=== PATIENT | female | born 1995 | race Caucasian/White ===

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

== ENCOUNTER 2017-01-02 18:18 | Emergency (ER) | payer MEDICAID ==
[~2017-01-02] VITALS: Ht 165.1 cm; Wt 59.0 kg
[~2017-01-02 18:18] MED LIST changes: -AUGM875T PO; -LACT PO; -MUPI2%T TOP
[2017-01-02 18:20] VITALS: BP 131/83; PULSE 87; RESP 16; TEMP 98.3; O2SAT 98
--- NOTE | 2017-01-02 18:41 | PD ---
HPI Chief Complaint: Head Injury Time Seen by Provider: 18:40 Travel History International Travel<30 days: No Contact w/Intl Traveler<30days: No Traveled to known affect area: No History of Present Illness HPI 21 yo female complains of head trauma vomiting epistaxis and visual change in the left eye. She was climbing through a window into a house. Evidently the window was somehow propped up and fell about 2 feet downwards striking her right parietal occipital scalp. She had no loss of consciousness. It was quite painful initially. As noted vomiting epistaxis followed. She also had a triangular shape of blackness in her field of vision in the left eye. No double vision. No extremity weakness. PFSH Past Medical History Developmental Delay: No Diabetes: No Diminished Hearing: No Neurologic: Yes (concussion) Reproductive: Yes (percosious puberty) Immunizations Current: Yes ?: Not LMP: 01/01/17 : 1 Para: 1 Ovarian Cysts: Yes (CYSTS 2010, 2011) Past Surgical History Abdominal Surgery: Yes (LAP, R/T OVARIAN CYST RUPTURED, FB REMOVAL -BRACES Apr) Social History Alcohol Use: No Tobacco Use: No Substance Use: No Allergies-Medications (Allergen,Severity, Reaction): Coded Allergies: Ativan (Verified Allergy, Severe, Itching, 01/02/17) Reported Meds & Prescriptions Reported Meds & Active Scripts Active Bactrim DS (Sulfamethoxazole-Trimethoprim) 800-160 Mg Tab 1 Tab PO BID Motrin Ib (Ibuprofen) 200 Mg Tab 600 Mg PO Q6H PRN Zofran Odt (Ondansetron Odt) 4 Mg Tab 4 Mg SL Q6HR PRN Review of Systems Except as stated in HPI: all other systems reviewed are Neg General / Constitutional: No: Fever Eyes: Positive: Visual changes Physical Exam Narrative GENERAL: 21 yo F, WNWD, NAD, pleasant SKIN: Warm and dry. HEAD: Atraumatic. Normocephalic. No evidence trauma R parieto-occipital trauma. EYES: No scleral icterus. No injection or drainage. Pupils equal round and reactive to light. ENT: No nasal bleeding or discharge. Mucous membranes pink and moist. NECK: Trachea midline. No JVD. CARDIOVASCULAR: Regular rate and rhythm. RESPIRATORY: No accessory muscle use. Clear to auscultation. Breath sounds equal bilaterally. GASTROINTESTINAL: Abdomen soft, non-tender, nondistended. Hepatic and splenic margins not palpable. MUSCULOSKELETAL: Extremities without clubbing, cyanosis, or edema. No obvious deformities. NEUROLOGICAL: Awake and alert. No obvious cranial nerve deficits. Motor grossly within normal limits. Five out of 5 muscle strength in the arms and legs. Normal speech. PSYCHIATRIC: Appropriate mood and affect; insight and judgment normal. Data Data Last Documented VS Vital Signs Date Time Temp Pulse Resp B/P Pulse Ox O2 Delivery O2 Flow Rate FiO2 01/02/17 18:20 98.3 87 16 131/[address] Brain W/O Iv Contrast(Rout) (01/02/17 18:40) MDM Medical Decision Making Medical Screen Exam Complete: Yes Emergency Medical Condition: Yes Medical Record Reviewed: Yes Differential Diagnosis retinal injury, ICH, CHI, globe injury Narrative Course CT head pending at time of dictation. d/w Dr Carbajal at 700pm. Francisco Yan MD January 02, 2017 18:41
--- NOTE | 2017-01-02 19:19 | PD ---
Physical Exam Narrative General: The patient is a well-developed well-nourished female in no acute distress Head and Neck exam: Head is normocephalic atraumatic. Eyes: EOMI, pupils are equal round and reactive to light. Nose: Midline septum with pink mucous membranes Mouth: Dentition unremarkable. Moist mucus membranes. Posterior oropharynx is not erythematous. No tonsillar hypertrophy. Uvula midline. Airway patent. Neck: No palpable lymphadenopathy. No nuchal rigidity. No thyromegaly. No spinous process tenderness to palpation, no step-off or crepitus, no erythema or ecchymosis. Patient has full active range of motion without pain in her neck. Cardiovascular: Regular rate and rhythm without murmurs, gallops, or rubs. Lungs: Clear to auscultation bilaterally. No wheezes, rhonchi, or rales. Abdomen: Soft, without tenderness to palpation in all 4 quadrants of the abdomen. No guarding, rebound, or rigidity. Normal bowel sounds are audible. No tenderness on palpation of McBurney's point. Extremities: No clubbing, cyanosis, or edema. 2+ pulses in all 4 extremities. No calf tenderness on palpation. Back: No spinous process tenderness to palpation. No costovertebral angle tenderness to palpation. Neurologic Exam: Cranial nerves 2-12 were intact on exam. Strength is 5/5 in all 4 extremities. No sensory deficits noted. No dysdiadochokinesis. Good finger to nose and Heel to thorpe bilaterally. Skin Exam: No rash noted. Intact skin that is warm and dry. Data Data Last Documented VS Vital Signs Date Time Temp Pulse Resp B/P Pulse Ox O2 Delivery O2 Flow Rate FiO2 01/02/17 18:20 98.3 87 16 131/[address] Brain W/O Iv Contrast(Rout) (01/02/17 18:40) Mri Brain W&W/O Contrast (01/02/17 20:05) Complete Blood Count With Diff (01/02/17 20:05) Basic Metabolic Panel (Bmp) (01/02/17 20:05) Westergren Sedimentation Rate (01/02/17 20:05) Sodium Chlor 0.9% 1000 Ml Inj (Ns 1000 M (01/02/17 20:30) Ondansetron Inj (Zofran Inj) (01/02/17 20:30) Acetamin-Hydrocod 325-5 Mg (Left Hand 5-325 (01/02/17 20:30) Labs Laboratory Tests Test 01/02/17 20:21 White Blood Count 10.3 TH/MM3 Red Blood Count 4.63 MIL/MM3 Hemoglobin 13.5 GM/DL Hematocrit 39.2 % Mean Corpuscular Volume 84.8 FL Mean Corpuscular Hemoglobin 29.1 PG Mean Corpuscular Hemoglobin 34.3 % Concent Red Cell Distribution Width 14.3 % Platelet Count 249 TH/MM3 Mean Platelet Volume 9.3 FL Neutrophils (%) (Auto) 64.9 % Lymphocytes (%) (Auto) 27.1 % Monocytes (%) (Auto) 6.2 % Eosinophils (%) (Auto) 1.5 % Basophils (%) (Auto) 0.3 % Neutrophils # (Auto) 6.7 TH/MM3 Lymphocytes # (Auto) 2.8 TH/MM3 Monocytes # (Auto) 0.6 TH/MM3 Eosinophils # (Auto) 0.2 TH/MM3 Basophils # (Auto) 0.0 TH/MM3 CBC Comment DIFF FINAL Differential Comment Erythrocyte Sedimentation Rate 11 mm/hr Sodium Level 138 MEQ/L Potassium Level 4.1 MEQ/L Chloride Level 105 MEQ/L Carbon Dioxide Level 25.6 MEQ/L Anion Gap 7 MEQ/L Blood Urea Nitrogen 9 MG/DL Creatinine 0.78 MG/DL Estimat Glomerular Filtration 95 ML/MIN Rate Random Glucose 80 MG/DL Calcium Level 8.8 MG/DL [facility] Medical Record Reviewed: Yes Supervised Visit with ELIZABETH: No Interpretation(s) Last Impressions Head CT 01/02/17 1840 Signed Impressions: Service Date/Time: Monday, January 02, 2017 19:47 - CONCLUSION: Normal examination. Godwin Odonnell MD Differential Diagnosis Retinal detachment, versus retinal tear, versus occipital lobe trauma, versus intra-cranial hemorrhage, versus MS. Narrative Course During the course of the patients emergency department visit, the patients history, examination, and differential diagnosis were reviewed with the patient. The patient was placed on a drywall hanger helper with oximetry and blood pressure monitoring. The patient's case was checked out to me by Dr. Yan who requested that I review the patient's CT scan findings. The patient is a 21 -year-old female who presents to [facility] emergency department with a reported history of at 11 AM this morning attempting to climb through her window as she did not have a bernal. She reports that the window fell down on the occipital aspect of her head. She reports that apparently 5 minutes later she had 2 episodes of vomiting. She reports that intermittently since then she' s had nosebleeds of a minor amount of bleeding 5 times. She reports that the bleeding stops on its own. She denies hitting her head or face. She reports that about an hour ago she began to have a headache over her forehead that she describes as a pressure sensation that comes and goes. She also reports that since hitting her head she has a triangular aspect loss of visual medrano along the nasal aspect of her upper vision. On exam, the patient has no retinal abnormality identified. Pupils are equal bilaterally. Visual acuity is 20 over 20 bilaterally. A call was placed out to the outside residential sales professional on-call for further guidance and consideration of follow-up tomorrow for dilated eye exam. The patient reports that the last time she had an eye exam was [address] scan of the brain has been ordered. Laboratory studies were done and a CBC was within normal limits, sedimentation rate is 11 decreased the likelihood of a vasculitis, BMP is unremarkable Radiology studies were reviewed and remarkable for a CT scan of the brain that shows no acute abnormality. MRI with and without contrast of the brain shows no acute abnormality. The patient will be discharged home to follow-up with Dr. Jacobsen, the outside residential sales professional financial services education consultant. I did speak to him by phone and he recommended that the patient follow-up in his office tomorrow for a dilated eye exam. The patient is resting comfortably and feels better, is alert and in no distress. The patients results and examination findings were discussed with the patient. The repeat examination is unremarkable and benign. The history, exam, diagnostic testing, and current condition do not suggest any significant pathology to warrant further testing, continued ED treatment, admission, or surgical evaluation at this point. The vital signs have been stable. The patient does not have uncontrollable pain, intractable vomiting, or other significant symptoms. The patient's condition is stable and appropriate for discharge. The patient will pursue further outpatient evaluation with a primary care physician or other designated or consulting physician as indicated in the discharge instructions. The patient expressed understanding and was agreeable with this plan. Physician Communication Physician Communication The patient's case was discussed with Dr. Jacobsen at 8:03 PM. He reported that he will see the patient in his office tomorrow for a dilated eye exam. Diagnosis Primary Impression: Visual field defect Additional Impression: Head injury Qualified Code: S09.90XA - Head injury, initial encounter Referrals: Puma Santiago MD 1 day Call in the morning for an appointment and a dilated eye exam Patient Instructions: Acute Headache (ED), General Instructions, Head Injury ( ED) Med/Other Pt SpecificInfo: Prescription(s) given Scripts Ondansetron Odt (Zofran Odt)4 Mg Tab4 Mg SL Q6HR PRN (Nausea/Vomiting) #7 TAB Ref 0 Prov:Abigail Carbajal MD 01/02/17 Disposition: 01 DISCHARGE HOME Condition: Stable Abigail Carbajal MD January 02, 2017 19:19
--- NOTE | 2017-01-02 20:00 | RADRPT ---
EXAM DATE/TIME: 01/02/2017 19:47 [facility] COMPARISON: CT BRAIN W/O CONTRAST, April 21, 2010, 12:04. INDICATIONS : Window fell on head, now vomiting. RADIATION DOSE: 44.71 CTDIvol (mGy) MEDICAL HISTORY : percosions puberty SURGICAL HISTORY : None. ENCOUNTER: Initial ACUITY: 1 day PAIN SCALE: 5/10 LOCATION: cranial TECHNIQUE: Multiple contiguous axial images were obtained of the head. Using automated exposure control and adj ustment of the mA and/or kV according to patient size, radiation dose was kept as low as reasonably a chievable to obtain optimal diagnostic quality images. FINDINGS: CEREBRUM: The ventricles are normal for age. No evidence of midline shift, mass lesion, hemorrhage or acute in farction. No extra-axial fluid collections are seen. POSTERIOR FOSSA: The cerebellum and brainstem are intact. The 4th ventricle is midline. The cerebellopontine angle i s unremarkable. EXTRACRANIAL: The visualized portion of the orbits is intact. SKULL: The calvaria is intact. No evidence of skull fracture. CONCLUSION: Normal examination. Godwin Odonnell MD on January 02, 2017 at 19:57 Board Certified Radiologist. This report was verified electronically.
[2017-01-02] MEDS ORDERED: ONDANSETRON HCL 4 MG/2 ML VIAL IV ONE (20:30)
[2017-01-02] MEDS ORDERED: SODIUM CHLOR 0.9% 1000 ML INJ 1,000 ML IV ONE (20:30)
[2017-01-02] MEDS ORDERED: ACETAMINOPHEN/HYDROcodone 325 MG/5 MG TAB PO ONE (20:30)
[2017-01-02 20:56] LABS: AUTOMATED NEUTROPHIL # 6.7 TH/MM3 (1.8-7.7); BASOPHIL % 0.3 % (0.0-2.0); EOSINOPHIL # 0.2 TH/MM3 (0-0.4); EOSINOPHIL % 1.5 % (0.0-4.0); HEMATOCRIT 39.2 % (35.0-46.0); HEMO FLAGS DIFF FINAL; LYMPH % 27.1 % (9.0-44.0); LYMPHOCYTE # 2.8 TH/MM3 (1.0-4.8); MEAN CELL VOLUME 84.8 FL (80.0-100.0); MEAN CORPUSCULAR HEMOGLOBIN 29.1 PG (27.0-34.0); MEAN CORPUSCULAR HGB CONC 34.3 % (32.0-36.0); MONO % 6.2 % (0.0-8.0); NEUT % 64.9 % (16.0-70.0); PLATELET COUNT 249 TH/MM3 (150-450); RED BLOOD COUNT 4.63 MIL/MM3 (4.00-5.30); RED CELL DISTRIBUTION WIDTH 14.3 % (11.6-17.2); WHITE BLOOD COUNT 10.3 TH/MM3 (4.0-11.0)
[2017-01-02 21:29] LABS: BICARBONATE 25.6 MEQ/L (21.0-32.0)
[2017-01-02 21:43] LABS: POTASSIUM 4.1 MEQ/L (3.5-5.1)
--- NOTE | 2017-01-02 22:24 | RADRPT ---
EXAM DATE/TIME: 01/02/2017 21:34 [facility] COMPARISON: No previous studies available for comparison. INDICATIONS : Trauma. Visual field deficit after head injury. CONTRAST: 12 cc Omniscan (gadodiamide) IV MEDICAL HISTORY : None. SURGICAL HISTORY : Post ovarian cyst rupture. ENCOUNTER: Subsequent ACUITY: 1 day PAIN SCORE: 0/10 LOCATION: cranial TECHNIQUE: Multiplanar, multisequence MRI of the brain was performed both prior to and following the administrat ion of paramagnetic contrast. FINDINGS: CEREBRUM: The ventricles are normal for age. No evidence of midline shift, mass lesion, hemorrhage or acute in farction. No extraaxial fluid collections are seen. The pituitary gland and suprasellar cistern are normal in configuration. WHITE MATTER: No significant signal abnormalities are seen in the white matter. POSTERIOR FOSSA: The cerebellum and brainstem are intact. The 4th ventricle is midline. The cerebellopontine angle is unremarkable. The cerebellar tonsils are normal in position. DIFFUSION IMAGING: No focal areas of restricted diffusion are seen. No evidence of acute infarction. EXTRACRANIAL: The visualized portions of the orbits and paranasal sinuses are unremarkable. POST-CONTRAST: No abnormal areas of parenchymal or dural enhancement. No evidence of blood-brain barrier breakdown. CONCLUSION: Normal examination. Godwin Odonnell MD on January 02, 2017 at 22:21 Board Certified Radiologist. This report was verified electronically.
[2017-01-02] MEDS ORDERED: ZOFR4TAB3 SL (22:32)
[2017-01-02] MEDS ORDERED: GADODIAMIDE PF 287 MG/ML 5 ML VIAL (for RAD MRI) IV ONE (22:55)
== END 2017-01-02 23:04 | disposition home or self-care (01) ==
LOC: NEPE 18:18
DX: H53.40 Unspecified visual field defects (principal); S09.90XA Unspecified injury of head, initial encounter; R11.10 Vomiting, unspecified; R04.0 Epistaxis; W20.8XXA Other cause of strike by thrown, projected or falling object, initial encounter; Y92.009 Unspecified place in unspecified non-institutional (private) residence as the place of occurrence of the external cause
CPT/HCPCS: 70450; 70553; 80048; 85025; 85652; 99284; A9579; J7030

== ENCOUNTER 2017-04-20 10:28 | Emergency (ER) | payer MEDICAID ==
[~2017-04-20 10:28] MED LIST changes: -BACT800T5 PO; +METR500T10 PO; -MOTR200T4 PO; -ZOFR4TAB3 SL; +[UNRECOGNIZED DRUG - CODE] PO
[2017-04-20] MEDS ORDERED: IOHEXOL 350 MG/ML 10 ML VIAL (for RAD DIAG) IVCONTRAST ONE (10:29)
[2017-04-20 10:30] VITALS: BP 144/91; PULSE 107; RESP 15; TEMP 97.9; O2SAT 99
--- NOTE | 2017-04-20 11:54 | PD ---
HPI Chief Complaint: Chest Pain Time Seen by Provider: 11:09 Travel History International Travel<30 days: No Contact w/Intl Traveler<30days: No Traveled to known affect area: No History of Present Illness HPI 21-year-old female that presents to the ED for evaluation of chest pain on and off for 2 months. Per patient the chest pain got worse the past couple days. Per patient came more severe. Nothing really seems to bring about. She is concerned because she does have a family history and her mom who had a heart attack in her 20s. She has no cardiac history herself. She does do some heavy lifting as she does have a toddler at home but other than that she does not have any history of injuries. She denies any actual injury. No cough or runny nose. Per patient he feels like a pulling sensation and he can be sharp 7 out of 10 but she has no pain at this time. She did have pain before being brought to the room. Patient does not radiate. She denies any shortness of breath and recent travel. No fevers chills or sweats. PFSH Past Medical History Developmental Delay: No Diabetes: No Diminished Hearing: No Neurologic: Yes (concussion) Reproductive: Yes (percosious puberty) Immunizations Current: Yes ?: Not : 1 Para: 1 Ovarian Cysts: Yes (CYSTS 2010, 2011) Past Surgical History Abdominal Surgery: Yes (LAP, R/T OVARIAN CYST RUPTURED, FB REMOVAL -BRACES Apr) Social History Alcohol Use: No Tobacco Use: No Substance Use: No Allergies-Medications (Allergen,Severity, Reaction): Coded Allergies: lorazepam (Unverified Allergy, Severe, Itching, 04/10/17) Reported Meds & Prescriptions Reported Meds & Active Scripts Active Amethia Lo (Levonorgestrel-Ethinyl Estradiol) 0.1-0.02-0.01 Mg Tab 1 Tab PO DAILY Review of Systems Except as stated in HPI: all other systems reviewed are Neg Physical Exam Narrative GENERAL: SKIN: Warm and dry. HEAD: Atraumatic. Normocephalic. EYES: Pupils equal and round. No scleral icterus. No injection or drainage. ENT: No nasal bleeding or discharge. Mucous membranes pink and moist. Tongue is midline. No uvula deviation. NECK: Trachea midline. No JVD. CARDIOVASCULAR: Regular rate and rhythm. No murmurs, S3, S4. RESPIRATORY: No accessory muscle use. Clear to auscultation. Breath sounds equal bilaterally. GASTROINTESTINAL: Abdomen soft, non-tender, nondistended. Hepatic and splenic margins not palpable. MUSCULOSKELETAL: Extremities without clubbing, cyanosis, or edema. No obvious deformities. Full range of motion of the upper and lower extremities bilaterally. 2+ pulses bilaterally. Chest pain is not reproducible with touch. NEUROLOGICAL: Awake and alert. No obvious cranial nerve deficits. Motor grossly within normal limits. Five out of 5 muscle strength in the arms and legs. Normal speech. PSYCHIATRIC: Appropriate mood and affect; insight and judgment normal. Data Data Last Documented VS Vital Signs Date Time Temp Pulse Resp B/P (MAP) Pulse Ox O2 Delivery O2 Flow Rate FiO2 04/20/17 12:32 95 16 Room Air 04/20/17 10:30 97.9 144/91 (108) 99 Orders Orders Electrocardiogram (04/20/17 ) Electrocardiogram (04/20/17 11:19) Basic Metabolic Panel (Bmp) (04/20/17 11:19) Ckmb (Isoenzyme) Profile (04/20/17 11:19) Complete Blood Count With Diff (04/20/17 11:19) Troponin I (04/20/17 11:19) Lipase (04/20/17 11:19) Chest, Single Ap (04/20/17 11:19) Ecg Monitoring (04/20/17 11:19) Iv Access Insert/Monitor (04/20/17 11:19) D-Dimer (04/20/17 11:51) Ct Pulmonary Angiogram (04/20/17 12:39) Ed Urine Pregnancytest Poc (04/20/17 12:39) Iohexol 350 Inj (Omnipaque 350 Inj) (04/20/17 10:29) Labs Laboratory Tests Test 04/20/17 11:20 04/20/17 11:50 04/20/17 12:20 Blood Urea Nitrogen 7 MG/DL Creatinine 0.65 MG/DL Random Glucose 79 MG/DL Calcium Level 8.6 MG/DL Sodium Level 139 MEQ/L Potassium Level 3.6 MEQ/L Chloride Level 105 MEQ/L Carbon Dioxide Level 26.4 MEQ/L Anion Gap 8 MEQ/L Estimat Glomerular Filtration Rate 117 ML/MIN Total Creatine Kinase 49 U/L Troponin I LESS THAN 0.02 NG/ML Lipase 57 U/L D-Dimer Quantitative (PE/DVT) 0.53 MG/L FEU White Blood Count 7.7 TH/MM3 Red Blood Count 4.66 MIL/MM3 Hemoglobin 13.5 GM/DL Hematocrit 40.4 % Mean Corpuscular Volume 86.7 FL Mean Corpuscular Hemoglobin 29.0 PG Mean Corpuscular Hemoglobin Concent 33.5 % Red Cell Distribution Width 13.6 % Platelet Count 190 TH/MM3 Mean Platelet Volume 8.8 FL Neutrophils (%) (Auto) 80.7 % Lymphocytes (%) (Auto) 10.8 % Monocytes (%) (Auto) 8.1 % Eosinophils (%) (Auto) 0.3 % Basophils (%) (Auto) 0.1 % Neutrophils # (Auto) 6.2 TH/MM3 Lymphocytes # (Auto) 0.8 TH/MM3 Monocytes # (Auto) 0.6 TH/MM3 Eosinophils # (Auto) 0.0 TH/MM3 Basophils # (Auto) 0.0 TH/MM3 CBC Comment DIFF FINAL Differential Comment MDM Medical Decision Making Medical Screen Exam Complete: Yes Emergency Medical Condition: Yes Medical Record Reviewed: Yes Interpretation(s) EKG showed sinus rhythm with no sign of acute ischemia or arrhythmia read by me and attending. CBC & BMP Diagram 04/20/17 11:20 Calcium Level 8.6 04/20/17 12:[address] Angiography 04/20/17 1239 Signed Impressions: Service Date/Time: Thursday, April 20, 2017 14:50 - CONCLUSION: 1. Suboptimal opacification of the subsegmental pulmonary arteries. No evidence for pulmonary artery embolism to the distal segmental level. 2. Unremarkable chest CT examination. Mj Scruggs MD Chest X-Ray 04/20/17 1119 Signed Impressions: Service Date/Time: Thursday, April 20, 2017 11:55 - CONCLUSION: No acute cardiopulmonary abnormality is identified. Godwin Bearden MD Troponin and CK-MB negative. Differential Diagnosis Pulmonary embolism versus chest pain versus muscle scale chest pain versus PE versus ACS versus normal exam Narrative Course 21-year-old female that presents to the ED for evaluation of chest pain. Patient was properly examined and was found to have signs and symptoms of unclear etiology at this time. Likely benign but patient does have risk factors including family history of heart disease at a young age with her mom having a heart attack in her 20s. Labs and imaging were ordered. Initial EKG showed no sign of acute ischemia or arrhythmia read by me and attending. Labs and imaging showed positive d-dimmer of 0.56. CT pulmonary diagram was ordered to rule out any sign of PE. CT was negative. Patient was reassured. At this time this appears to be muscular related. I recommend close follow with PCP. Patient was given a prescription for diclofenac sodium. Case discussed in my attending who is in agreement with plan. See ED worsening symptoms. Diagnosis Primary Impression: Atypical chest pain Patient Instructions: General Instructions Additional Instructions: Take medication as prescribed. Follow with PCP. See ED worsening symptoms. Med/Other Pt SpecificInfo: Prescription(s) given Scripts Diclofenac Sodium DR (Diclofenac Sodium DR) 75 Mg Tabdr 75 MG PO BID Y for PAIN SCALE 1 TO 10, #20 TAB 0 Refills Prov: Cr Richardson MD 04/20/17 Disposition: 01 DISCHARGE HOME Condition: Stable Shaji Alex Apr 20, 2017 11:54
--- NOTE | 2017-04-20 12:00 | RADRPT ---
EXAM DATE/TIME: 04/20/2017 11:55 [facility] COMPARISON: CT ABDOMEN & PELVIS W CONTRAST, September 08, 2016, 18:41. CHEST SINGLE AP, June 21, 2016, 21:15. INDICATIONS : Chest pain., short of breath. MEDICAL HISTORY : None. SURGICAL HISTORY : None. ENCOUNTER: Initial ACUITY: 2 months PAIN SCORE: 6/10 LOCATION: Bilateral chest FINDINGS: Portable AP view of the chest demonstrates a normal-sized cardiac silhouette. No effusion, consolidat ion, or pneumothorax is visualized. The bones and soft tissues demonstrate no acute abnormality. Bila teral nipple piercings are present. CONCLUSION: No acute cardiopulmonary abnormality is identified. Godwin Bearden MD on April 20, 2017 at 11:58 Board Certified Radiologist. This report was verified electronically.
[2017-04-20 13:07] LABS: AUTOMATED NEUTROPHIL # 6.2 TH/MM3 (1.8-7.7); BASOPHIL % 0.1 % (0.0-2.0); EOSINOPHIL % 0.3 % (0.0-4.0); HEMATOCRIT 40.4 % (35.0-46.0); HEMO FLAGS DIFF FINAL; LYMPH % 10.8 % (9.0-44.0); LYMPHOCYTE # 0.8 TH/MM3 (1.0-4.8); MEAN CELL VOLUME 86.7 FL (80.0-100.0); MEAN CORPUSCULAR HGB CONC 33.5 % (32.0-36.0); MONO % 8.1 % (0.0-8.0); NEUT % 80.7 % (16.0-70.0); PLATELET COUNT 190 TH/MM3 (150-450); RED BLOOD COUNT 4.66 MIL/MM3 (4.00-5.30); RED CELL DISTRIBUTION WIDTH 13.6 % (11.6-17.2); WHITE BLOOD COUNT 7.7 TH/MM3 (4.0-11.0)
[2017-04-20 13:14] LABS: ANION GAP 8 MEQ/L (5-15); BICARBONATE 26.4 MEQ/L (21.0-32.0); BLOOD UREA NITROGEN 7 MG/DL (7-18); CHLORIDE 105 MEQ/L (98-107); GLOMERULAR FILTRATION RATE 117 ML/MIN (>89); POTASSIUM 3.6 MEQ/L (3.5-5.1); SODIUM (NA) 139 MEQ/L (136-145)
[2017-04-20 13:20] LABS: CREATINE KINASE 49 U/L (26-192)
--- NOTE | 2017-04-20 15:26 | RADRPT ---
EXAM DATE/TIME: 04/20/2017 14:50 [facility] COMPARISON: No previous studies available for comparison. INDICATIONS : Chest pains for two months. IV CONTRAST: 50 cc Omnipaque 350 (iohexol) IV RADIATION DOSE: 5.50 CTDIvol (mGy) MEDICAL HISTORY : Ovarian cyst ruptured SURGICAL HISTORY : None. ENCOUNTER: Initial ACUITY: 2 months PAIN SCALE: 3/10 LOCATION: Bilateral chest TECHNIQUE: Volumetric scanning of the chest was performed using a pulmonary embolism protocol MIP images were re constructed. Using automated exposure control and adjustment of the mA and/or kV according to patien t size, radiation dose was kept as low as reasonably achievable to obtain optimal diagnostic quality images. DICOM format image data is available electronically for review and comparison. Follow-up recommendations for detected pulmonary nodules are based at a minimum on nodule size and pa tient risk factors according to Fleischner Society Guidelines. FINDINGS: PULMONARY ARTERIES: There is suboptimal opacification of the subsegmental branches. Pulmonary branches to the distal segm ental level are patent without significant intraluminal filling defect. LUNGS: There is no consolidation or pneumothorax . No concerning pulmonary nodule is visualized. PLEURAE: There is no pleural thickening or pleural effusion. MEDIASTINUM: There is good visualization of the great vessels of the middle mediastinum. No evidence of mediastin al or hilar adenopathy/mass. MUSCULOSKELETAL: Within normal limits for patient age. MISCELLANEOUS: The visualized upper abdominal organs demonstrate no acute abnormality. CONCLUSION: 1. Suboptimal opacification of the subsegmental pulmonary arteries. No evidence for pulmonary artery embolism to the distal segmental level. 2. Unremarkable chest CT examination. Mj Scruggs MD on April 20, 2017 at 15:10 Board Certified Radiologist. This report was verified electronically.
[2017-04-20] MEDS ORDERED: DICL75TA PO (15:39)
--- NOTE | 2017-04-21 18:50 | EKG ---
Date Performed: 04/20/2017 Time Performed: 10:38:58 PTAGE: 21 years EKG: Sinus rhythm WITH SHORT [place] INTERVAL RIGHT AXIS DEVIATION MODERATE ST DEPRESSION ABNORMAL ECG PREVIOUS TRACING : 06/21/2016 21.08 Compared to prior tracing no significant change DOCTOR: Gene Mattson Interpretating Date/Time 04/21/2017 18:48:51
[2017-06-07] MEDS ORDERED: METR500T10 PO (13:54)
== END 2017-04-20 15:55 | disposition home or self-care (01) ==
LOC: NEPE 10:28
DX: R07.89 Other chest pain (principal)
CPT/HCPCS: 71010; 71275; 80048; 82550; 83690; 84484; 84703; 85025; 85379; 93005; 99285; Q9967

== ENCOUNTER 2017-07-04 17:04 | Emergency (ER) | payer MEDICAID ==
[~2017-07-04] VITALS: Ht 170.2 cm; Wt 64.0 kg
[~2017-07-04 17:04] MED LIST changes: -METR500T10 PO; +NITR1CAP36 PO; -[UNRECOGNIZED DRUG - CODE] PO
[2017-07-04 17:12] VITALS: BP 120/76; PULSE 111; RESP 16; TEMP 102.7; O2SAT 99
[2017-07-04] MEDS ORDERED: MAPA500T13 PO (17:23)
[2017-07-04] MEDS ORDERED: SODIUM CHLOR 0.9% 1000 ML INJ 1,000 ML IV SCH (17:58)
[2017-07-04] MEDS ORDERED: SODIUM CHLORIDE 0.9% FLUSH 10 ML FLUSH IV FLUSH PRN (18:00)
[2017-07-04] MEDS ORDERED: ONDANSETRON HCL 4 MG/2 ML VIAL IVP ONE (18:00)
--- NOTE | 2017-07-04 18:07 | PD ---
HPI Chief Complaint: GI Complaint Time Seen by Provider: 17:58 Travel History International Travel<30 days: No Contact w/Intl Traveler<30days: No Traveled to known affect area: No History of Present Illness HPI 22-year-old female patient presents to the ER today, states that she had been treated for UTI last week and several days later started having severe redness and swelling around her genital area, it lewis so much to. That she can barely PE, states that she has not really been able to urinate for the last 3 days. She states that she also is fairly constipated. She had an episode of nausea and vomiting with some blood today. She complains of upper abdominal discomfort which she rates it a 9 out of 10. She denies any other issues. Modifying Factors: None Associated Signs & Symptoms: Severe burning on urination, swelling around the genital area, nausea, vomiting with blood today, upper abdominal pain Risk Factors: None PFSH Past Medical History Developmental Delay: No Diabetes: No Diminished Hearing: No Neurologic: Yes (concussion) Reproductive: Yes (percosious puberty) Immunizations Current: Yes Influenza Vaccination: No ?: Not LMP: 06/13/17 : 1 Para: 1 Ovarian Cysts: Yes (CYSTS 2010, 2011) Past Surgical History Abdominal Surgery: Yes (LAP, R/T OVARIAN CYST RUPTURED, FB REMOVAL -BRACES Apr) Social History Alcohol Use: No Tobacco Use: No Substance Use: No Allergies-Medications (Allergen,Severity, Reaction): Coded Allergies: lorazepam (Unverified Allergy, Severe, Itching, 07/04/17) Reported Meds & Prescriptions Reported Meds & Active Scripts Active Reported Mapap Extra Strength (Acetaminophen) 500 Mg Tab 1,000 Mg PO Q4-6H PRN Review of Systems Except as stated in HPI: all other systems reviewed are Neg Physical Exam Narrative GENERAL: Well-developed young white female patient currently in moderate distress. Awake and oriented 3. SKIN: Focused skin assessment warm/dry. HEAD: Atraumatic. Normocephalic. EYES: Pupils equal and round. No scleral icterus. No injection or drainage. ENT: No nasal bleeding or discharge. Mucous membranes pink and moist. NECK: Trachea midline. No JVD. CARDIOVASCULAR: Regular rate and rhythm. No murmur appreciated. RESPIRATORY: No accessory muscle use. Clear to auscultation. Breath sounds equal bilaterally. GASTROINTESTINAL: Abdomen soft, non-tender, nondistended. Hepatic and splenic margins not palpable. GENITOURINARY: Exam is limited by discomfort, patient is declining internal exam at this point. Normal external genitalia notable labia minora erythema and valvular erythema, there is notable for whitish discharge from the vaginal area which appears to be caught cheeselike. MUSCULOSKELETAL: No obvious deformities. No clubbing. No cyanosis. No edema. NEUROLOGICAL: Awake and alert. No obvious cranial nerve deficits. Motor grossly within normal limits. Normal speech. PSYCHIATRIC: Appropriate mood and affect; insight and judgment normal. Data Data Last Documented VS Vital Signs Date Time Temp Pulse Resp B/P (MAP) Pulse Ox O2 Delivery O2 Flow Rate FiO2 07/04/17 18:45 100.2 109 18 110/73 (85) 100 Room Air Orders Orders Urinalysis - C+S If Indicated (07/04/17 17:18) Ed Urine Pregnancytest Poc (07/04/17 17:18) Complete Blood Count With Diff (07/04/17 17:58) Comprehensive Metabolic Panel (07/04/17 17:58) Iv Access Insert/Monitor (07/04/17 17:58) Ecg Monitoring (07/04/17 17:58) Oximetry (07/04/17 17:58) Ondansetron Inj (Zofran Inj) (07/04/17 18:00) Sodium Chlor 0.9% 1000 Ml Inj (Ns 1000 M (07/04/17 17:58) Sodium Chloride 0.9% Flush (Ns Flush) (07/04/17 18:00) Wet Prep Profile (07/04/17 17:58) Urine Culture (07/04/17 18:00) Labs Laboratory Tests Test 07/04/17 18:00 07/04/17 18:15 Urine Color YELLOW Urine Turbidity CLOUDY Urine pH 6.5 Urine Specific [place] 1.029 Urine Protein TRACE mg/dL Urine Glucose (UA) NEG mg/dL Urine Ketones NEG mg/dL Urine Occult Blood SMALL Urine Nitrite NEG Urine Bilirubin NEG Urine Leukocyte Esterase MOD Urine RBC 4-9 /hpf Urine WBC 50-99 /hpf Urine Squamous Epithelial Cells 6-8 /hpf Urine Bacteria FEW /hpf Urine Yeast (Budding) FEW Microscopic Urinalysis Comment CULTURE INDICATED Clue Cells (Wet Prep) NONE SEEN Vaginal Trichomonas (Wet Prep) NONE SEEN Vaginal Yeast (Wet Prep) PRESENT White Blood Count 8.2 TH/MM3 Red Blood Count 4.36 MIL/MM3 Hemoglobin 12.5 GM/DL Hematocrit 37.1 % Mean Corpuscular Volume 85.1 FL Mean Corpuscular Hemoglobin 28.8 PG Mean Corpuscular Hemoglobin Concent 33.8 % Red Cell Distribution Width 12.6 % Platelet Count 164 TH/MM3 Mean Platelet Volume 8.6 FL Neutrophils (%) (Auto) 66.5 % Lymphocytes (%) (Auto) 23.7 % Monocytes (%) (Auto) 7.1 % Eosinophils (%) (Auto) 2.2 % Basophils (%) (Auto) 0.5 % Neutrophils # (Auto) 5.5 TH/MM3 Lymphocytes # (Auto) 1.9 TH/MM3 Monocytes # (Auto) 0.6 TH/MM3 Eosinophils # (Auto) 0.2 TH/MM3 Basophils # (Auto) 0.0 TH/MM3 CBC Comment AUTO DIFF Differential Total Cells Counted 100 Neutrophils % (Manual) 63 % Band Neutrophils % 9 % Lymphocytes % 21 % Monocytes % 5 % Eosinophils % 2 % Neutrophils # (Manual) 5.9 TH/MM3 Differential Comment FINAL DIFF MANUAL Platelet Estimate NORMAL Platelet Morphology Comment NORMAL Red Cell Morphology Comment NORMAL Blood Urea Nitrogen 7 MG/DL Creatinine 0.62 MG/DL Random Glucose 87 MG/DL Total Protein 7.8 GM/DL Albumin 3.5 GM/DL Calcium Level 8.3 MG/DL Alkaline Phosphatase 80 U/L Aspartate Amino Transf (AST/SGOT) 20 U/L Alanine Aminotransferase (ALT/SGPT) 36 U/L Total Bilirubin 0.3 MG/DL Sodium Level 135 MEQ/L Potassium Level 3.6 MEQ/L Chloride Level 104 MEQ/L Carbon Dioxide Level 25.4 MEQ/L Anion Gap 6 MEQ/L Estimat Glomerular Filtration Rate 123 ML/MIN [facility] Medical Decision Making Medical Screen Exam Complete: Yes Emergency Medical Condition: Yes Medical Record Reviewed: Yes Interpretation(s) Laboratory Tests Test 07/04/17 18:00 07/04/17 18:15 Urine Turbidity CLOUDY (CLEAR) Urine Occult Blood SMALL (NEG) Urine Leukocyte Esterase MOD (NEG) Urine RBC 4-9 /hpf (0-3) Urine WBC 50-99 /hpf (0-5) Urine Squamous Epithelial Cells 6-8 /hpf (0-5) Urine Bacteria FEW /hpf (NONE) Urine Yeast (Budding) FEW (NONE) Vaginal Yeast (Wet Prep) PRESENT (NONE) Band Neutrophils % 9 % (0-6) Calcium Level 8.3 MG/DL (8.5-10.1) Sodium Level 135 MEQ/L (136-145) Differential Diagnosis Allergic reaction versus BV versus candidal vaginitis versus UTI, rule out urinary obstruction Narrative Course Internal exam was deferred due to patient's discomfort, refused internal exam. Wet prep was done using swallow the area which show significant yeast. In addition, she also have on ongoing UTI. Lab work did not show any signs of significant dehydration or renal effects. At this point, my plan would be to give her treatment for both UTI and candidal vaginitis. Return for any worsening in pain, vomiting, fevers, or new symptoms as needed. The plan has been discussed with her and she states understanding. Diagnosis Primary Impression: Vulvovaginitis due to yeast Additional Impression: UTI (urinary tract infection) Med/Other Pt SpecificInfo: Prescription(s) given Scripts Sulfamethoxazole-Trimethoprim (Bactrim DS) 800-160 Mg Tab 1 TAB PO BID for Infection, #14 TAB 0 Refills Prov: Sudha Loyola MD 07/04/17 Phenazopyridine (Pyridium) 100 Mg Tab 100 MG PO Q8H Y for DYSURIA, #12 TAB 0 Refills Prov: Sudha Loyola MD 07/04/17 Fluconazole (Diflucan) 150 Mg Tab 150 MG PO ONCE for Infection, #1 TAB 0 Refills Prov: Sudha Loyola MD 07/04/17 Disposition: 01 DISCHARGE HOME Condition: Stable Sudha Loyola MD Jul 04, 2017 18:07
[2017-07-04 18:30] LABS: BLOOD, URINE SMALL (NEG); GLUCOSE,URINE NEG (NEG); KETONE, URINE NEG (NEG); NITRITE,URINE NEG (NEG); PH, URINE 6.5 (5.0-8.5)
[2017-07-04 18:33] LABS: AUTOMATED NEUTROPHIL # 5.5 TH/MM3 (1.8-7.7); BASOPHIL % 0.5 % (0.0-2.0); EOSINOPHIL # 0.2 TH/MM3 (0-0.4); EOSINOPHIL % 2.2 % (0.0-4.0); HEMATOCRIT 37.1 % (35.0-46.0); LYMPH % 23.7 % (9.0-44.0); LYMPHOCYTE # 1.9 TH/MM3 (1.0-4.8); MEAN CELL VOLUME 85.1 FL (80.0-100.0); MEAN CORPUSCULAR HEMOGLOBIN 28.8 PG (27.0-34.0); MEAN CORPUSCULAR HGB CONC 33.8 % (32.0-36.0); MONO % 7.1 % (0.0-8.0); NEUT % 66.5 % (16.0-70.0); PLATELET COUNT 164 TH/MM3 (150-450); RED BLOOD COUNT 4.36 MIL/MM3 (4.00-5.30); RED CELL DISTRIBUTION WIDTH 12.6 % (11.6-17.2); WHITE BLOOD COUNT 8.2 TH/MM3 (4.0-11.0)
[2017-07-04 18:36] LABS: URINE COLOR YELLOW (YELLW/STRAW)
[2017-07-04 18:37] LABS: BACTERIA, URINE FEW /hpf; COMMENT (UR) CULTURE INDICATED; CULTURE IF INDICATED CULTURE INDICATED
[2017-07-04 18:37] LABS: HEMO FLAGS AUTO DIFF
[2017-07-04 18:45] VITALS: BP 110/73; PULSE 109; RESP 18; TEMP 100.2; O2SAT 100
[2017-07-04 18:46] LABS: CHLORIDE 104 MEQ/L (98-107); POTASSIUM 3.6 MEQ/L (3.5-5.1); SODIUM (NA) 135 MEQ/L (136-145)
[2017-07-04 18:50] LABS: ANION GAP 6 MEQ/L (5-15); BICARBONATE 25.4 MEQ/L (21.0-32.0); BLOOD UREA NITROGEN 7 MG/DL (7-18)
[2017-07-04 18:53] LABS: ALT (GPT) 36 U/L (9-42); AST (GOT) 20 U/L (16-38); GLOMERULAR FILTRATION RATE 123 ML/MIN (>89)
[2017-07-04 18:54] LABS: TOTAL BILIRUBIN ADULT 0.3 MG/DL (0.2-1.0)
[2017-07-04 18:56] LABS: ALKALINE PHOSPHATASE 80 U/L (45-117)
[2017-07-04 19:02] LABS: BANDS 9 % (0-6); EOSINOPHILS 2 % (0-4); NEUTROPHIL # MANUAL DIFF 5.9 TH/MM3 (1.8-7.7); POLYS (SEG NEUTROPHILS) 63 % (16-70); WBC DIFF SAMPLE 100
[2017-07-04 19:04] LABS: PLATELET ESTIMATE SMEAR NORMAL (NORMAL); PLATELET MORPHOLOGY NORMAL (NORMAL); SCAN/DIFF FINAL DIFF MANUAL
[2017-07-04] MEDS ORDERED: PHEN0.4T PO (19:11)
[2017-07-04] MEDS ORDERED: BACT800T5 PO (19:11)
[2017-07-04] MEDS ORDERED: DIFL150T PO (19:11)
[2017-07-04 19:33] VITALS: BP 110/73
[2017-07-05] MEDS ORDERED: NYST1OIN TOPICAL (08:59)
[2017-07-17] MEDS ORDERED: CLIN2CRE5 VAGINAL (11:25)
== END 2017-07-04 19:42 | disposition home or self-care (01) ==
LOC: PHED 17:04
DX: N76.0 Acute vaginitis (principal); N39.0 Urinary tract infection, site not specified; B96.89 Other specified bacterial agents as the cause of diseases classified elsewhere
CPT/HCPCS: 80053; 81001; 84703; 85007; 85027; 87086; 87210; 96360; 99284; J7030

== ENCOUNTER 2018-01-28 10:50 | Emergency (ER) | payer MEDICAID ==
[~2018-01-28 10:50] MED LIST changes: +ACYC-101 PO; -NITR1CAP36 PO
[2018-01-28 11:27] VITALS: BP 133/76; PULSE 83; RESP 16; TEMP 98.4; O2SAT 98
--- NOTE | 2018-01-28 12:15 | RADRPT ---
EXAM DATE: 01/28/2018 12:09 PM EDT AGE/SEX: 22 years / Female INDICATIONS: Right ankle pain after tripping on cords. CLINICAL DATA: This is the patient's initial encounter. Patient reports that signs and symptoms have been present for 1 day and indicates a pain score of 4/10. MEDICAL/SURGICAL HISTORY: None. None. COMPARISON: [facility]PO, ANKLE RIGHT COMPLETE ([id number]), 02/05/2011. . FINDINGS: 3 views of the right ankle demonstrate no fracture or dislocation. The ankle mortise is intact. Wanda alization is within normal limits and there is no significant arthropathy. No soft tissue abnormality or radiopaque foreign body is identified. CONCLUSION: No acute right ankle abnormality is identified. Electronically signed by: Gdowin Bearden MD 01/28/2018 12:14 PM EDT
--- NOTE | 2018-01-28 12:28 | PD ---
HPI Chief Complaint: Injury Time Seen by Provider: 12:23 Travel History International Travel<30 days: No Contact w/Intl Traveler<30days: No Traveled to known affect area: No History of Present Illness HPI 22-year-old female presents to the emergency room for evaluation of right ankle pain and swelling after injuring it at work. Patient states she tripped over phone cords while working today and landed funny on her ankle. Since then she has had pain and swelling localized to the lateral aspect. Pain is worsened with range of motion or ambulation. States it improves with a certain position or she applies pressure to the area. She has not taken anything for symptoms. She has been applying ice. Denies any paresthesias. No chronic medical conditions or daily medications. Her work told her she could not return until she had it evaluated. [facility] Past Medical History Developmental Delay: No Diabetes: No Diminished Hearing: No Neurologic: Yes (concussion) Reproductive: Yes (percosious puberty) Immunizations Current: Yes : 1 Para: 1 Ovarian Cysts: Yes (CYSTS 2010, 2011) Past Surgical History Abdominal Surgery: Yes (LAP, R/T OVARIAN CYST RUPTURED, FB REMOVAL -BRACES Apr) Social History Alcohol Use: No Tobacco Use: No Substance Use: No Allergies-Medications (Allergen,Severity, Reaction): Coded Allergies: amoxicillin (Verified Allergy, Severe, 01/28/18) UNKNOWN /CHILDHOOD lorazepam (Unverified Allergy, Severe, Itching, 07/31/17) metronidazole (Verified Allergy, Intermediate, swelling, 07/31/17) Reported Meds & Prescriptions Reported Meds & Active Scripts Active Zovirax (Acyclovir) 800 Mg Tab 800 Mg PO DAILY Review of Systems Except as stated in HPI: all other systems reviewed are Neg Physical Exam Narrative GENERAL: Well-nourished, well-developed female no acute distress. Afebrile. Ambulatory. SKIN: Focused skin assessment warm/dry. No erythema or ecchymosis. HEAD: Normocephalic. EYES: No scleral icterus. No injection or drainage. NECK: Supple, trachea midline. No JVD or lymphadenopathy. CARDIOVASCULAR: Regular rate and rhythm without murmurs, gallops, or rubs. RESPIRATORY: Breath sounds equal bilaterally. No accessory muscle use. MUSCULOSKELETAL: No cyanosis. No obvious edema. 2+ dorsalis pedis pulse. Full range of motion of the right ankle. Negative squeeze test. No bony tenderness to palpation. Data Data Last Documented VS Vital Signs Date Time Temp Pulse Resp B/P (MAP) Pulse Ox O2 Delivery O2 Flow Rate FiO2 01/28/18 11:27 98.4 83 16 133/76 (95) 98 Orders Orders Ankle, Complete ([id number]) (01/28/18 ) Ed Discharge Order (01/28/18 12:28) Splint Or Brace Apply/Monitor (01/28/18 12:28) [facility] Medical Decision Making Medical Screen Exam Complete: Yes Emergency Medical Condition: Yes Medical Record Reviewed: Yes Differential Diagnosis Fracture, sprain, contusion, dislocation Narrative Course 22-year-old female presents to the emergency room for evaluation of right ankle pain after trip and fall earlier today. Patient denies any other injuries. She has been ambulatory. States she only came because her work told her she cannot return until she was cleared. Right lower extremity is neurovascularly intact. She has full range of motion. No obvious edema. No erythema or ecchymosis. No bony tenderness to palpation. X-rays negative. Likely sprain given mechanism. Patient placed in ankle stirrup and told to follow-up with primary care physician or return for worsening symptoms. She understands and agrees to plan. Diagnosis Primary Impression: Right ankle sprain Qualified Codes: S93.401A - Sprain of unspecified ligament of right ankle, initial encounter Referrals: Primary Care Physician Departure Forms: Tests/Procedures, Work Release Enter return to work date: Jan 29, 2018 Additional Instructions: Rest and drink plenty of fluids. Use splint as needed for pain. Take ibuprofen with food as directed, as needed for pain. Apply ice to the affected area for 20 minutes at a time, as needed for pain and swelling. Follow-up with a primary care physician. Return to the emergency room for worsening symptoms. Disposition: 01 DISCHARGE HOME Condition: Stable Linnette Wilson Jan 28, 2018 12:28
== END 2018-01-28 13:03 | disposition home or self-care (01) ==
LOC: NEPK 10:50
DX: S93.401A Sprain of unspecified ligament of right ankle, initial encounter (principal); W18.09XA Striking against other object with subsequent fall, initial encounter
CPT/HCPCS: 73610; 99283; L1906